=== PATIENT | female | born 1960 | race Caucasian/White ===

== ENCOUNTER → 2016-12-10 | Outpatient (CLI) | payer OTHER | LOC: CIMAGING 10:05 | PROVIDERS: ATTEND Family Medicine | DX: S49.91XA Unspecified injury of right shoulder and upper arm, initial encounter (principal) | CPT/HCPCS: 73000-PO ==

== ENCOUNTER → 2017-02-16 | Outpatient (CLI) | payer OTHER | LOC: CIMAGING 08:13 | PROVIDERS: ATTEND Family Medicine | DX: Z12.31 Encounter for screening mammogram for malignant neoplasm of breast (principal); Z80.3 Family history of malignant neoplasm of breast | CPT/HCPCS: G0202 ==

== ENCOUNTER → 2017-04-10 | Outpatient (CLI) | payer OTHER ==
[~2017-04-10] MED LIST: DEPO METHYLPREDNISOLONE 40 MG/ML SDV ONE; IOPAMIDOL (ISOVUE 370) 100 ML BTL IV ONE; LIDOCAINE 1% 300 MG/30 ML SDV ONE; ROPIVACAINE HCL 150 MG/30 ML INJ ONE
== END ==
LOC: FIMAGING 10:20
PROVIDERS: ATTEND Physician Assistant
DX: M24.152 Other articular cartilage disorders, left hip (principal)
CPT/HCPCS: J1030; J2795; Q9967

== ENCOUNTER 2017-12-29 00:29 | Emergency (ER) | payer OTHER ==
[2017-12-29] MEDS ORDERED: FAMOTIDINE 20 MG/NACL 50 ML IV ONE (00:38)
[2017-12-29] MEDS ORDERED: methylPREDNISolone SOD SUCC 125 MG/2 ML VIAL IVP ONE (00:38)
--- NOTE | 2017-12-29 00:44 | EDPHY ---
H & P Stated Complaint: Allergic reacction, difficulty breathing, Time Seen by Provider: 12/29/17 00:33 HPI/ROS: Chief Complaint: Abdominal bloating, vomiting, possible allergic reaction HPI: 57-year-old woman with a history of a allergies to peanuts states that she began having a reaction earlier this evening that she thinks is an allergic reaction. She denies eating any nuts that she is aware of. She states she last ate dinner at about 4 o'clock yesterday afternoon. Over the course of the evening she said she has sensation of throat is closing up but states initially for the 1st 2 hr she did not really pay much attention to it. She states in the course the last hour though she has been having increasing mucus . This given the sensation of throat was closing. She did vomit once include out mucus is feeling better. She is also stating over the course of the last couple hours she has had increasing abdominal bloating and abdominal pain. Has only vomited just once. No diarrhea or constipation. No fevers or chills. No cough or wheeze. No fevers or chills. She drank a little bit of Benadryl ROS: 10 point Review of Systems is negative except as noted in the HPI. Social History: No smoking, no alcohol, no recreational drug use Family History: non-contributory Physical Exam: Gen: Awake, Alert, No Distress HEENT: Nose: no rhinorrhea Eyes: PERRLA, EOMI Mouth: Moist mucosa Neck: Supple, no JVD Chest: nontender, lungs clear to auscultation Heart: S1, S2 normal, no murmur Abd: Soft, mildly distended, moderate epigastric tenderness, no guarding Back: no CVA tenderness, no midline tenderness Ext: no edema, non-tender Skin: no rash Neuro: CN II-XII intact, Sensation grossly intact, Strength 5/5 in bilateral upper and lower extremities - Personal History Current Tetanus Diphtheria and Acellular Pertussis (TDAP): Yes - Medical/Surgical History Hx Asthma: Yes Hx Chronic Respiratory Disease: No Hx Diabetes: No Hx Cardiac Disease: No Hx Renal Disease: No Hx Cirrhosis: No Hx Alcoholism: No Hx HIV/AIDS: No Hx Splenectomy or Spleen Trauma: No Other PMH: med hx-asthma,thyroid and seasonal allergies. surg-rt knee - Social History Smoking Status: Never smoked Constitutional: Initial Vital Signs Temperature (C) 37.0 C 12/29/17 00:31 Heart Rate 72 12/29/17 00:31 Respiratory Rate 20 12/29/17 00:31 Blood Pressure 167/95 H 12/29/17 00:31 O2 Sat (%) 100 12/29/17 00:31 O2 Delivery Mode Room Air Allergies/Adverse Reactions: meperidine HCl [From Demerol] Allergy (Severe, Verified 11/16/15 09:53) Anaphylaxis Home Medications: Medication Instructions Recorded Fluticasone/Salmeter 500/50Mcg puffs IH BIDI 03/17/13 [Advair] Levothyroxine [Synthroid 100 mcg mcg PO DAILY06 03/17/13 (RX)] Budesonide/Formoterol Fumarate 01/27/14 [Symbicort 80-4.5 Mcg Inhaler] Albuterol Hfa Anes Only [Proair 03/29/15 Hfa Icu (RX)] Esomeprazole Mag Trihydrate 40 mg PO 11/16/15 [Nexium] Medical Decision Making ED Course/Re-evaluation: Patient is improved. She is describing an episode where she had worsening sensation of of fullness in her throat with abdominal bloating. Rather than allergic reaction I suspect that she had exacerbation of her gastroesophageal reflux. I did give her IV Pepcid here is part of a allergy cocktail. She is feeling better. She has not had any further vomiting. Repeat examination shows no oral pharyngeal edema. No stridor. She is in no distress. Abdomen is soft and nontender. I have advised her to continue taking her usual antacid medications. She will also continue taking Benadryl for the next 24 hr. She will follow up with primary care physician, return for any worsening. - Data Points Medications Given: Discontinued Medications Diphenhydramine HCl (Benadryl Injection) 50 mg IVP EDNOW ONE Stop: 12/29/17 00:39 Last Admin: 12/29/17 00:46 Dose: 50 mg Famotidine/Sodium Chloride (Pepcid 20 Mg (Premix)) 50 mls @ 200 mls/hr IV EDNOW ONE Stop: 12/29/17 00:52 Last Admin: 12/29/17 00:46 Dose: 50 mls Methylprednisolone Sodium Succinate (Solu-Medrol) 125 mg IVP EDNOW ONE Stop: 12/29/17 00:39 Last Admin: 12/29/17 00:46 Dose: 125 mg Ondansetron HCl (Zofran) 4 mg IVP EDNOW ONE Stop: 12/29/17 01:01 Last Admin: 12/29/17 01:04 Dose: 4 mg Departure - Departure Disposition: Home, Routine, Self-Care Clinical Impression: GERD (gastroesophageal reflux disease) Condition: Good Instructions: Gastroesophageal Reflux Disease (ED) Additional Instructions: Continue taking your usual antacid medications. You may continue taking Benadryl, 50 mg every 4-6 hours for any allergy symptoms. Follow up with your primary care physician in 2-3 days for further evaluation. Return to the emergency department for increasing difficulty breathing, abdominal pain, nausea, vomiting, or any other concerns. If you feel you having significantly worsening shortness of breath or difficulty breathing please use your EpiPen immediately. Referrals: Patient,NotPresent [Unknown] - As per Instructions
[2017-12-29] MEDS ORDERED: ONDANSETRON 4 MG/2 ML VIAL IVP ONE (01:00)
[2017-12-29] MEDS ORDERED: ONDANSETRON 4 MG/2 ML VIAL ONE (01:01)
[2017-12-29 02:14] VITALS: BP 117/63
== END 2017-12-29 02:13 | disposition home or self-care (01) ==
DX: K21.9 Gastro-esophageal reflux disease without esophagitis (principal); J45.909 Unspecified asthma, uncomplicated; Z91.010 Allergy to peanuts
CPT/HCPCS: 96374; J1200; J2405; J2930

== ENCOUNTER → 2018-12-04 | Outpatient (CLI) | payer OTHER | LOC: FIMAGING 14:16 | PROVIDERS: ATTEND Family Medicine | DX: R92.8 Other abnormal and inconclusive findings on diagnostic imaging of breast (principal) ==